=== PATIENT | male | born 1965 | race Caucasian/White ===

== ENCOUNTER → 2017-06-03 | Outpatient (CLI) | payer BC, MEDICARE ==
--- NOTE | 2017-06-03 11:03 | RADIOLOGY REPORT PS360 ---
HAND-LT-3 VIEWS HISTORY: Fifth finger pain FINGER PAIN ORDERING PHYSICIAN: CHYNA DOMINIQUE PATIENT AGE: 51 years COMPARISON: None FINDINGS: No fracture or dislocation. No lytic or blastic change. There is normal mineralization. The joint spaces are well-preserved. No significant degenerative/arthritic changes. No erosive changes evident. There is a small lucency involving the base of the proximal phalanx of the fifth digit consistent with small subcortical cyst IMPRESSION: 1. No acute finding. 2. 1.5 mm subcortical cyst proximal phalanx fifth digit
== END ==
LOC: RAD 10:36
DX: M79.645 Pain in left finger(s) (principal)